=== PATIENT | male | born 1995 | race Caucasian/White ===

== ENCOUNTER 2020-11-01 10:16 | Emergency (ER) | payer MEDICAID ==
[~2020-11-01] VITALS: Ht 170.2 cm; Wt 54.4 kg
[2020-11-01 10:20] VITALS: BP 115/83
--- NOTE | 2020-11-01 10:28 | NUR ---
LAB AT BEDSIDE
--- NOTE | 2020-11-01 10:30 | NUR ---
25 YO M BIB SELF FOR C/C OF 2/10 LLQ PAIN SINCE 0800 THIS MORNING ACCOMPANIED BY ONE EPISODE OF BRIGHT RED BLOODY STOOL THIS MORNING, DENIES STRAINING DURING BM. PT ALSO REPORTS FEELING OF INCOMPLETE BLADDER EMPTYING X2 DAYS AND MAL ODOROUS URINE. PT DENIES DYSURIA/FREQUENCY. PT REPORTS DIZZINESS PRIOR TO BM THIS MORNING THAT HAS SINCE RESOLVED. DENIES N/V/D, CP, SOB. PT REPORTS ONE FEMALE SEXUAL PARTNER WITH NO USE OF PROTECTION. BED LOCKED AND IN LOWEST POSITION. SIDE RAILS X1. MED HX: ASTHMA NKA
[2020-11-01 10:41] LABS: BASOPHILS % (AUTO) 0.6 % (0.0-2.0); EOSINOPHILS # (AUTO) 0.4 K/uL (0-0.4); HEMATOCRIT 46.4 % (36-52); HEMOGLOBIN 15.8 g/dL (12.0-18.0); LYMPHOCYTES # (AUTO) 2.3 K/uL (2.0-11.5); LYMPHOCYTES % (AUTO) 36.3 % (20.5-51.1); MEAN CORPUSCULAR HEMOGLOBIN 29 pg (27-31); MEAN CORPUSCULAR HGB CONC 34 g/dL (33-37); MEAN CORPUSCULAR VOLUME 84.4 fL (80-94); MONOCYTES # (AUTO) 0.4 K/uL (0.8-1.0); MONOCYTES % (AUTO) 5.8 % (1.7-9.3); NEUTROPHILS # (AUTO) 3.2 K/uL (1.8-7.7); NEUTROPHILS % (AUTO) 51.3 % (42.2-75.2); PLATELET COUNT (AUTO) 210 K/uL (140-450); RED CELL DISTRIBUTION WIDTH 13.1 % (11.6-13.7); WHITE BLOOD COUNT (AUTO) 6.2 K/uL (4.8-10.8)
[2020-11-01 10:57] LABS: APPEARANCE,URINE CLEAR (CLEAR); BILIRUBIN,URINE NEGATIVE (NEGATIVE); BLOOD, URINE NEGATIVE (NEGATIVE); COLOR,URINE YELLOW (YELLOW); LEUKOCYTE ESTERASE ,URINE NEGATIVE (NEGATIVE); NITRITE, URINE NEGATIVE (NEGATIVE); PH,URINE 6.5 (5.0-9.0); UGLUCOSE NEGATIVE (NEGATIVE)
[2020-11-01 11:45] VITALS: BP 115/83
--- NOTE | 2020-11-01 11:45 | NUR ---
Patient discharged with v/s stable. Written and verbal after care instructions given and explained. Patient verbalized understanding. Ambulatory with steady gait. All questions addressed prior to discharge. Advised to follow up with PMD.
== END 2020-11-01 11:45 | disposition home or self-care (01) ==
LOC: MED 10:16
DX: R30.0 Dysuria (principal); K60.2 Anal fissure, unspecified
CPT/HCPCS: 36415; 81003; 85025; 99283